=== PATIENT | male | born 1970 ===

== ENCOUNTER 2024-05-24 06:25 | Day surgery (SDC) | payer OTHER, SELFPAY ==
[2024-05-24 12:31] LABS: Glucose - Point of Care 113 mg/dl (70-99)
== END 2024-05-24 13:44 | disposition home or self-care (01) ==
LOC: GI 06:25
PROVIDERS: ATTENDING PHYSICIAN Internal Medicine Gastroenterology
DX: Z12.11 Encounter for screening for malignant neoplasm of colon (principal); Z83.719 Family history of colon polyps, unspecified; K57.30 Diverticulosis of large intestine without perforation or abscess without bleeding; K64.8 Other hemorrhoids; D12.4 Benign neoplasm of descending colon; K63.89 Other specified diseases of intestine; D12.0 Benign neoplasm of cecum
CPT/HCPCS: 45380; 88305; 82962

== ENCOUNTER 2024-07-25 06:21 | Day surgery (SDC) | payer OTHER, SELFPAY ==
[2024-07-25 10:09] VITALS: BMI 32.5
[2024-07-25 10:10] VITALS: BMI 32.5
[2024-07-25 10:11] VITALS: BP 140/79
[2024-07-25 10:19] LABS: Glucose - Point of Care 101 mg/dl (70-99)
[2024-07-25 12:27] LABS: Glucose - Point of Care 106 mg/dl (70-99)
[2024-07-25 13:19] VITALS: BP 129/75
[2024-07-25 13:30] VITALS: BP 117/83
== END 2024-07-25 13:55 | disposition home or self-care (01) ==
LOC: SDS 06:21
PROVIDERS: ATTENDING PHYSICIAN Internal Medicine Gastroenterology
DX: D12.1 Benign neoplasm of appendix (principal); K64.0 First degree hemorrhoids
CPT/HCPCS: 45390; 88305; 82962